=== PATIENT | female | born 1965 | race Caucasian/White ===

== ENCOUNTER 2017-08-31 08:55 | Emergency (ER) | payer OTHER ==
[~2017-08-31] VITALS: Ht 165.1 cm; Wt 96.9 kg
[~2017-08-31 08:55] MED LIST: MACROBID100 MG PO; PYRIDIUM100 MG PO; VICODIN 5-3001 EACH PO
[2017-08-31] MEDS ORDERED: TYLENOL WITH C1 EACH PO (11:36)
[2017-08-31 11:46] VITALS: BP 115/74
== END 2017-08-31 11:47 | disposition home or self-care (01) ==
LOC: EME 08:55
DX: S09.90XA Unspecified injury of head, initial encounter (principal); S16.1XXA Strain of muscle, fascia and tendon at neck level, initial encounter; J32.9 Chronic sinusitis, unspecified; V43.52XA Car driver injured in collision with other type car in traffic accident, initial encounter; Y92.410 Unspecified street and highway as the place of occurrence of the external cause; Z88.2 Allergy status to sulfonamides
CPT/HCPCS: 70450; 70486; 72125; 99281; 99284